=== PATIENT | female | born 1995 | race African-American/Black ===

== ENCOUNTER 2023-06-14 14:26 | Emergency (ER) | payer SELFPAY | END 2023-06-14 17:00 | disposition left against medical advice (07) | LOC: MW.ED 14:26 | DX: S93.401A Sprain of unspecified ligament of right ankle, initial encounter (principal); X50.1XXA Overexertion from prolonged static or awkward postures, initial encounter; Y99.0 Civilian activity done for income or pay | CPT/HCPCS: 73610-26-RT; 73610-RT; 99283 ==

== ENCOUNTER 2023-06-15 08:05 | Emergency (ER) | payer SELFPAY ==
[2023-06-15 08:39] LABS: BASOPHILS PERCENT AUTO 0.5 % (0.0-1.5); EOSINOPHILS ABSOLUTE AUTO 0.1 K/uL (0.0-0.7); EOSINOPHILS PERCENT AUTO 1.3 % (0.0-7.0); HEMATOCRIT 34.7 % (36.0-46.0); LYMPHOCYTES PERCENT AUTO 24.1 % (16.0-40.0); MEAN CORPUSCULAR HEMOGLOBIN 24.4 pg (27.0-32.0); MEAN CORPUSCULAR HGB CONC 31.7 g/dL (31.0-37.0); MEAN CORPUSCULAR VOLUME 77.1 fL (80.0-98.0); MONOCYTES ABSOLUTE AUTO 0.5 K/uL (0.0-0.8); MONOCYTES PERCENT AUTO 5.8 % (0.0-15.0); NEUTROPHILS ABSOLUTE AUTO 5.8 K/uL (1.4-5.7); NEUTROPHILS PERCENT AUTO 68.3 % (48.0-80.0); NRBC ABSOLUTE 0 K/uL; PLATELET COUNT,PLT 319 K/uL (150-400); WHITE BLOOD CELL COUNT,WBC 8.46 K/uL (4.0-11.0)
[2023-06-15 09:15] LABS: A/G RATIO 0.7 (0.9-1.6); ALANINE AMINOTRANSFERASE,ALT 17 IU/L (14-63); ALBUMIN 3.4 g/dL (3.4-5.0); ALKALINE PHOSPHATASE 49 U/L (46-116); ASPARTATE AMNIOTRANSFERASE,AST 18 IU/L (15-37); BILIRUBIN TOTAL 0.3 mg/dL (0.2-1.0); BLOOD UREA NITROGEN,BUN 10 mg/dL (7.0-18.0); CALCIUM 8.8 mg/dL (8.5-10.1); CARBON DIOXIDE,CO2 25.4 mmol/L (21.0-32.0); CHLORIDE,CL 104 mmol/L (98-107); CREATININE 0.9 mg/dL (0.6-1.0); GLUCOSE RANDOM 92 mg/dL (74-106); POTASSIUM,K 4.1 mmol/L (3.5-5.1); PROTEIN TOTAL,TP 8.1 g/dL (6.4-8.2); SODIUM,NA 138 mmol/L (136-145)
[2023-06-15 09:21] LABS: ESTIMATED GFR 89 mL/min (>60)
[2023-06-15 10:42] LABS: HIV12 AG/AB 4TH GEN W/REFLEX < 0.1 INDEX (<1.0)
== END 2023-06-15 11:10 | disposition home or self-care (01) ==
LOC: MW.ED 08:05
DX: K12.30 Oral mucositis (ulcerative), unspecified (principal); I10 Essential (primary) hypertension; Z79.899 Other long term (current) drug therapy; Z86.16 Personal history of COVID-19
CPT/HCPCS: 36415; 80053; 85025; 87389; 87529; 87798; 99283

== ENCOUNTER 2023-07-02 10:56 | Emergency (ER) | payer SELFPAY ==
[2023-07-02] MEDS ORDERED: Sodium Chloride 0.9% 1,000 ML IV ONE (11:12)
[2023-07-02] MEDS ORDERED: Ondansetron 4 MG/2 ML SDV IVPUSH ONE (11:12)
[2023-07-02] MEDS ORDERED: Ketorolac 30 MG/ML SDV IVPUSH ONE (11:12)
[2023-07-02 11:40] LABS: BASOPHILS PERCENT AUTO 0.5 % (0.0-1.5); EOSINOPHILS ABSOLUTE AUTO 0.1 K/uL (0.0-0.7); EOSINOPHILS PERCENT AUTO 0.8 % (0.0-7.0); HEMATOCRIT 36.6 % (36.0-46.0); HEMOGLOBIN 11.5 g/dL (12.0-16.0); LYMPHOCYTES ABSOLUTE AUTO 2.3 K/uL (0.6-2.4); LYMPHOCYTES PERCENT AUTO 27.9 % (16.0-40.0); MEAN CORPUSCULAR HEMOGLOBIN 24.7 pg (27.0-32.0); MEAN CORPUSCULAR HGB CONC 31.4 g/dL (31.0-37.0); MEAN CORPUSCULAR VOLUME 78.5 fL (80.0-98.0); MONOCYTES ABSOLUTE AUTO 0.5 K/uL (0.0-0.8); MONOCYTES PERCENT AUTO 6.2 % (0.0-15.0); NEUTROPHILS ABSOLUTE AUTO 5.3 K/uL (1.4-5.7); NEUTROPHILS PERCENT AUTO 64.6 % (48.0-80.0); NRBC ABSOLUTE 0 K/uL; PLATELET COUNT,PLT 336 K/uL (150-400); RED BLOOD CELL COUNT 4.66 M/uL (4.30-5.90); WHITE BLOOD CELL COUNT,WBC 8.24 K/uL (4.0-11.0)
[2023-07-02 11:43] LABS: APPEARANCE,URINE CLEAR; BILIRUBIN,URINE NEGATIVE (NEGATIVE); COLOR,URINE YELLOW; GLUCOSE,URINE NEGATIVE (NEGATIVE); KETONES,URINE NEGATIVE (NEGATIVE); LEUKOCYTE ESTERASE,URINE TRACE (NEGATIVE); NITRITE,URINE NEGATIVE (NEGATIVE); OCCULT BLOOD,URINE TRACE-INTACT (NEGATIVE); PH,URINE 6.5 (5.0-8.0); PROTEIN,URINE NEGATIVE (NEGATIVE); UROBILINOGEN,URINE 0.2 EU/dL (<2.0)
[2023-07-02 12:10] LABS: A/G RATIO 0.7 (0.9-1.6); ALBUMIN 3.4 g/dL (3.4-5.0); BILIRUBIN TOTAL 0.3 mg/dL (0.2-1.0); CARBON DIOXIDE,CO2 27.9 mmol/L (21.0-32.0); CREATININE 1.1 mg/dL (0.6-1.0); EST CRCL DRUG DOSING (CG) 62.42 mL/min; POTASSIUM,K 3.8 mmol/L (3.5-5.1)
[2023-07-02 12:16] LABS: BACTERIA,URINE FEW (NEGATIVE); EPITHELIAL CELLS,URINE OCCASIONAL (NONE-FEW); RBC,URINE 0-1 (0-2/HPF); WBC,URINE 0-2 (0-5/HPF)
[2023-07-02] MEDS ORDERED: Dicyclomine 10 MG Cap PO ONE (12:16)
== END 2023-07-02 13:17 | disposition home or self-care (01) ==
LOC: MW.ED 10:56
DX: K52.9 Noninfective gastroenteritis and colitis, unspecified (principal); I10 Essential (primary) hypertension; Z86.16 Personal history of COVID-19; Z79.899 Other long term (current) drug therapy
CPT/HCPCS: 36415; 80053; 81001; 81025; 83690; 85025; 87086; 96361; 96374; 96375; 99284; A9270; J1885; J2405; J7030

== ENCOUNTER 2023-07-14 09:33 | Emergency (ER) | payer SELFPAY ==
[2023-07-14] MEDS ORDERED: Ketorolac 30 MG/ML SDV IVPUSH STA (10:07)
[2023-07-14] MEDS ORDERED: Prochlorperazine 10 MG/2 ML SDV IVPUSH STA (10:07)
[2023-07-14] MEDS ORDERED: Sodium Chloride 0.9% 1,000 ML IV STA ×2 (10:07→11:23)
[2023-07-14] MEDS: diphenhydrAMINE 50 MG/ML SDV IVPUSH STA ×2 (10:37→10:55)
[2023-07-14] MEDS ORDERED: Sodium Chloride 0.9% 10 ML Syringe FLUSH PRN (10:39)
[2023-07-14] MEDS ORDERED: Sodium Chloride 0.9% 2.5 ML Syringe FLUSH PRN (10:39)
[2023-07-14] MEDS ORDERED: Prochlorperazine 10 MG/2 ML SDV IVPUSH ONE (10:44)
[2023-07-14 10:45] LABS: BASOPHILS PERCENT AUTO 0.4 % (0.0-1.5); EOSINOPHILS ABSOLUTE AUTO 0.1 K/uL (0.0-0.7); EOSINOPHILS PERCENT AUTO 0.9 % (0.0-7.0); HEMATOCRIT 37.8 % (36.0-46.0); HEMOGLOBIN 11.6 g/dL (12.0-16.0); LYMPHOCYTES ABSOLUTE AUTO 1.8 K/uL (0.6-2.4); LYMPHOCYTES PERCENT AUTO 23.1 % (16.0-40.0); MEAN CORPUSCULAR HEMOGLOBIN 24.3 pg (27.0-32.0); MEAN CORPUSCULAR HGB CONC 30.7 g/dL (31.0-37.0); MEAN CORPUSCULAR VOLUME 79.2 fL (80.0-98.0); MONOCYTES ABSOLUTE AUTO 0.5 K/uL (0.0-0.8); MONOCYTES PERCENT AUTO 6.3 % (0.0-15.0); NEUTROPHILS ABSOLUTE AUTO 5.2 K/uL (1.4-5.7); NEUTROPHILS PERCENT AUTO 69.3 % (48.0-80.0); NRBC ABSOLUTE 0 K/uL; PLATELET COUNT,PLT 342 K/uL (150-400); RED BLOOD CELL COUNT 4.77 M/uL (4.30-5.90); WHITE BLOOD CELL COUNT,WBC 7.56 K/uL (4.0-11.0)
[2023-07-14 10:57] LABS: A/G RATIO 0.7 (0.9-1.6); ALBUMIN 3.3 g/dL (3.4-5.0); BILIRUBIN TOTAL 0.4 mg/dL (0.2-1.0); CALCIUM 9.1 mg/dL (8.5-10.1); CARBON DIOXIDE,CO2 26.7 mmol/L (21.0-32.0); EST CRCL DRUG DOSING (CG) 68.67 mL/min; POTASSIUM,K 5.3 mmol/L (3.5-5.1); PROTEIN TOTAL,TP 8.2 g/dL (6.4-8.2)
[2023-07-14 11:54] LABS: APPEARANCE,URINE SLT CLOUDY; BILIRUBIN,URINE NEGATIVE (NEGATIVE); COLOR,URINE YELLOW; GLUCOSE,URINE NEGATIVE (NEGATIVE); KETONES,URINE NEGATIVE (NEGATIVE); LEUKOCYTE ESTERASE,URINE SMALL (NEGATIVE); NITRITE,URINE NEGATIVE (NEGATIVE); OCCULT BLOOD,URINE SMALL (NEGATIVE); PROTEIN,URINE NEGATIVE (NEGATIVE); UROBILINOGEN,URINE 0.2 EU/dL (<2.0)
[2023-07-14 12:22] LABS: BACTERIA,URINE MODERATE (NEGATIVE); EPITHELIAL CELLS,URINE MODERATE (NONE-FEW); RBC,URINE 0-2 (0-2/HPF)
== END 2023-07-14 13:05 | disposition home or self-care (01) ==
LOC: MW.ED 09:33
DX: R51.9 Headache, unspecified (principal); N30.01 Acute cystitis with hematuria; D50.9 Iron deficiency anemia, unspecified; Z79.899 Other long term (current) drug therapy; Z86.16 Personal history of COVID-19
CPT/HCPCS: 36415; 70450; 80053; 81001; 83690; 84132; 84703; 85025; 86308; 87086; 87088; 87186; 96361; 96374; 96375; 99285; J0780; J1885; J7030; 99284; J1200